=== PATIENT | female | born 1995 | race African-American/Black ===

== ENCOUNTER 2022-09-10 23:46 | Emergency (ER) | payer OTHER ==
--- NOTE | 2022-09-11 01:40 | CT ---
EXAM: CT Head Without Intravenous Contrast CLINICAL HISTORY: ITS.REASON CT Reason: fall TECHNIQUE: Axial computed tomography images of the head/brain without intravenous contrast. CTDI is 49.2 mGy and DLP is 1099.4 mGy-cm. This CT exam was performed using one or more of the following dose reduction techniques: automated exposure control, adjustment of the mA and/or kV according to patient size, and/or use of iterative reconstruction technique. COMPARISON: No relevant prior studies available. FINDINGS: Brain: Unremarkable. No hemorrhage. No significant white matter disease. No edema. Ventricles: Unremarkable. No ventriculomegaly. Bones/joints: Unremarkable. No acute fracture. Soft tissues: Unremarkable. Sinuses: Unremarkable as visualized. No acute sinusitis. Mastoid air cells: Unremarkable as visualized. No mastoid effusion. IMPRESSION: Normal head/brain CT.
[2022-09-11 01:53] LABS: African American GFR (CKD) >90 (>60 ml/min/1.73 sqM); Anion Gap 12 mmol/L; Blood Urea Nitrogen 6 mg/dL (7-17); Calcium 8.8 mg/dL (8.4-10.2); Carbon Dioxide 23 mmol/L (22-30); Chloride 106 mmol/L (98-107); Glucose 102 mg/dL (74-99); Non-African American GFR(CKD) 84 (>60 ml/min/1.73 sqM); Potassium 3.5 mmol/L (3.5-5.1); Sodium 141 mmol/L (137-145)
[2022-09-11] MEDS ORDERED: LORazepam 2 MG/ML INJ IV STA ×3 (02:02→08:55)
[2022-09-11] MEDS ORDERED: HALOPERIDOL LACTATE 5 MG/ML 1 ML VIAL IVP PRN (02:06)
--- NOTE | 2022-09-11 02:07 | ED ---
General Adult HPI - General Source: patient, RN notes reviewed Mode of arrival: ambulatory <Bere Mckeon - Last Filed: 09/12/22 00:12> <Neil Vaughn - Last Filed: 09/13/22 05:20> - General Chief complaint: Psychiatric Symptoms Stated complaint: ROBIN Riosition - Mental Health Time Seen by Provider: 09/11/22 00:23 - History of Present Illness Initial comments: 27-year-old -G[place]ian female with no significant past medical history presents to the emergency department via police escort with a chief complaint of hallucinations. Patient is reporting that she is hearing voices and seeing things. She reports that she saw her and in the back of the gas station. she reports she is hearing voices that are telling her to go upstairs. She denies any suicidal or homicidal ideation. She denies any illicit drug or alcohol use. Patient reports that she recently gave in [place]. Child lives with father. Patient reports that she is here for work. (Bere Mckeon) - Related Data Home Medications Medication Instructions Recorded Confirmed ARIPiprazole [Abilify] 15 mg PO DAILY 09/11/22 09/11/22 Allergies Allergy/AdvReac Type Severity Reaction Status Date / Time No Known Allergies Allergy Verified 09/11/22 09:42 Review of Systems ROS Other: All systems not noted in ROS Statement are negative. <Bere Mckeon - Last Filed: 09/12/22 00:12> ROS Other: All systems not noted in ROS Statement are negative. <Neil Vaughn - Last Filed: 09/13/22 05:20> ROS Statement: Those systems with pertinent positive or pertinent negative responses have been documented in the HPI. Past Medical History Past Medical History: No Reported History History of Any Multi-Drug Resistant Organisms: None Reported Past Surgical History: No Surgical Hx Reported Past Psychological History: No Psychological Hx Reported Smoking Status: Never smoker Past Alcohol Use History: Occasional Past Drug Use History: None Reported <Bere Mckeon - Last Filed: 09/12/22 00:12> General Exam Limitations: altered mental status General appearance: alert, anxious Head exam: Present: atraumatic, normocephalic Eye exam: Present: normal appearance, PERRL Pupils: Present: normal accommodation ENT exam: Present: normal exam, normal oropharynx Neck exam: Present: normal inspection Respiratory exam: Present: normal lung sounds bilaterally Cardiovascular Exam: Present: regular rate, normal rhythm GI/Abdominal exam: Present: soft. Absent: distended Extremities exam: Present: normal inspection, full ROM, normal capillary refill Back exam: Present: normal inspection Neurological exam: Present: altered (Active hallucinations), CN II-XII intact, normal gait Psychiatric exam: Present: normal affect, agitated, anxious, manic. Absent: homicidal ideation, suicidal ideation Skin exam: Present: warm, dry <Bere Mckeon - Last Filed: 09/12/22 00:12> Course <Bere Mckeon - Last Filed: 09/12/22 00:12> Vital Signs 09/10/22 09/11/22 09/11/22 23:50 04:00 05:00 Temperature 99.3 F Pulse Rate 83 73 78 Respiratory 18 14 16 Rate Blood Pressure 163/99 108/72 123/75 O2 Sat by Pulse 98 97 98 Oximetry 09/11/22 09/11/22 09/12/22 08:50 12:00 07:28 Temperature Pulse Rate Respiratory 18 16 16 Rate Blood Pressure O2 Sat by Pulse Oximetry 09/12/22 09/12/22 09/12/22 08:07 10:00 13:21 Temperature Pulse Rate 54 L Respiratory 16 16 16 Rate Blood Pressure 113/76 O2 Sat by Pulse 99 Oximetry - Reevaluation(s) Reevaluation #1: 09/11/22 02:03 Patient attempting to elope from the ER. She was activated. Patient able to be brought back to the ER bed 10. Patient screaming and stating she is hearing voices. 2Milligrams of Ativan ordered. (Bere Mckeno) Reevaluation #2: 09/11/22 02:07 EPS RN at bedside. EPS RN requesting 10 of Haldol to be ordered. (Bere Mckeon) Reevaluation #3: 09/11/22 02:41 With EPS nurse who is unable to evaluate the patient at this time. He reports that he will evaluate her in her few hours. (Bere Mckeon) Reevaluation #4: 09/11/22 04:00 case discussed with KARUNA Soria who assumes care of the patient while waiting for EPS evaluation. (Bere Mckeon) EKG Findings - EKG Comments: EKG Findings:: EKG reviewed and interpreted by myself, sinus rhythm, rate 73, IL interval 148, QRS duration 94, QTC 451 <Neil Vaughn - Last Filed: 09/13/22 05:20> Medical Decision Making - Lab Data Result diagrams: 09/11/22 00:48 09/11/22 00:48 <Bere Mckeon - Last Filed: 09/12/22 00:12> - Lab Data Result diagrams: 09/11/22 00:48 09/11/22 00:48 <Neil Vaughn - Last Filed: 09/13/22 05:20> - Medical Decision Making MDM: Hospital Course: Awaiting psychiatric evaluation. This is a 27-year-old -Gambian female who presents to the emergency department with hallucinations. Patient had a tho rough history and physical exam performed while in the ED. His exam is essentially unremarkable heart rate regular rate and rhythm, lungs clear to auscultation bilaterally, abdomen soft and nontender. Patient having auditory and visual hallucinations and attempted to elope from the emergency department she was given 2 mg of Ativan and 10 mg of Haldol recommendation of the EPS RN. Patient was resting comfortably at the time of sign out. I discussed the case with Dr. Vaughn who assumes care of the patient while awaiting EPS evaluation. (Bere Mckeon) Was pt. sent in by a medical professional or institution (, PA, WEB ADMINISTRATOR, urgent care, hospital, or long-term...) When possible be specific @ -[No] Did you speak to anyone other than the patient for history (EMS, parent, family, police, friend...)? What history was obtained from this source @ -[No] Did you review nursing and triage notes (agree or disagree)? Why? @ -[I reviewed and agree with nursing and triage notes] Were old charts reviewed (outside hosp., previous admission, EMS record, old EKG, old radiological studies, urgent care reports/EKG's, long-term records)? Report findings @ -[No old charts were reviewed] Differential Diagnosis (chest pain, altered mental status, abdominal pain women, abdominal pain men, vaginal bleeding, weakness, fever, dyspnea, syncope, headache, dizziness, GI bleed, back pain, seizure, CVA, palpatations, mental health, musculoskeletal)? @ Differential Mental Health Depression, anxiety, bipolar, psychosis, schizophrenia, borderline personality, situational depression, adjustment disorder, behavioral disorder, brain tumor, malingering, substance abuse, encephalopathy, medication reaction, dementia, hypothyroidism, degenerative neurologic disorder, lupus.... This is not meant to be all-inclusive list EKG interpreted by me (3pts min.). @ -EKG reviewed by myself, interpretation in EKG section X-rays interpreted by me (1pt min.). @ -[None done] CT interpreted by me (1pt min.). @ -[None done] U/S interpreted by me (1pt. min.). @ -[None done] What testing was considered but not performed or refused? (CT, X-rays, U/S, labs)? Why? @ -[None] What meds were considered but not given or refused? Why? @ -[None] Did you discuss the management of the patient with other professionals (professionals i.e. , PA, WEB ADMINISTRATOR, lab, RT, psych nurse, social media marketing analyst, can crimper, teacher, community chest officer, case work aide)? Give summary @ -[No] Was smoking cessation discussed for >3mins.? @ -[No] Was critical care preformed (if so, how long)? @ -[No] Were there social determinants of health that impacted care today? How? (H omelessness, low income, unemployed, alcoholism, drug addiction, transportation, low edu. Level, literacy, decrease access to med. care, residential, rehab)? @ -[No] Was there de-escalation of care discussed even if they declined (Discuss DNR or withdrawal of care, Hospice)? DNR status @ -[No] What co-morbidities impacted this encounter? (DM, HTN, Smoking, COPD, CAD, Cancer, CVA, ARF, Chemo, Hep., AIDS, mental health diagnosis, sleep apnea, morbid obesity)? @ -[None] Was patient admitted / discharged? Hospital course, mention meds given and route, prescriptions, significant lab abnormalities, going to OR and other pertinent info. @Patient required sedation for agitation and elopement precautions. She will be evaluated by EPS when awake and alert. Patient care signed out to oncoming physician awaiting reevaluation and EPS evaluation. (Neil Vaughn) - Lab Data Lab Results 09/11/22 09/11/22 09/11/22 Range/Units 00:48 00:48 00:48 WBC 5.1 (3.8-10.6) k/uL RBC 4.84 (3.80-5.40) m/uL Hgb 12.1 (11.4-16.0) gm/dL Hct 38.5 (34.0-46.0) % MCV 79.5 L (80.0-100.0) fL MCH 25.1 (25.0-35.0) pg MCHC 31.6 (31.0-37.0) g/dL RDW 16.3 H (11.5-15.5) % Plt Count 257 (150-450) k/uL MPV 9.2 Neutrophils % 49 % Lymphocytes % 40 % Monocytes % 8 % Eosinophils % 1 % Basophils % 0 % Neutrophils # 2.5 (1.3-7.7) k/uL Lymphocytes # 2.0 (1.0-4.8) k/uL Monocytes # 0.4 (0-1.0) k/uL Eosinophils # 0.0 (0-0.7) k/uL Basophils # 0.0 (0-0.2) k/uL Hypochromasia Slight Anisocytosis Slight Microcytosis Slight Sodium 141 (137-145) mmol/L Potassium 3.5 (3.5-5.1) mmol/L Chloride 106 (98-107) mmol/L Carbon Dioxide 23 (22-30) mmol/L Anion Gap 12 mmol/L BUN 6 L (7-17) mg/dL Creatinine 0.94 (0.52-1.04) mg/dL Est GFR (CKD-EPI)AfAm >90 (>60 ml/min/1.73 sqM) Est GFR (CKD-EPI)NonAf 84 (>60 ml/min/1.73 sqM) Glucose 102 H (74-99) mg/dL Calcium 8.8 (8.4-10.2) mg/dL Urine Opiates Screen Not Detected (NotDetected) Ur Oxycodone Screen Not Detected (NotDetected) Urine Methadone Screen Not Detected (NotDetected) Ur Propoxyphene Screen Not Detected (NotDetected) Ur Barbiturates Screen Not Detected (NotDetected) U Tricyclic Antidepress Detected H (NotDetected) Ur Phencyclidine Scrn Not Detected (NotDetected) Ur Amphetamines Screen Not Detected (NotDetected) U Methamphetamines Scrn Not Detected (NotDetected) U Benzodiazepines Scrn Not Detected (NotDetected) Urine Cocaine Screen Not Detected (NotDetected) U Marijuana (THC) Screen Detected H (NotDetected) Coronavirus (PCR) (Not Detectd) 09/11/22 Range/Units 01:30 WBC (3.8-10.6) k/uL RBC (3.80-5.40) m/uL Hgb (11.4-16.0) gm/dL Hct (34.0-46.0) % MCV (80.0-100.0) fL MCH (25.0-35.0) pg MCHC (31.0-37.0) g/dL RDW (11.5-15.5) % Plt Count (150-450) k/uL MPV Neutrophils % % Lymphocytes % % Monocytes % % Eosinophils % % Basophils % % Neutrophils # (1.3-7.7) k/uL Lymphocytes # (1.0-4.8) k/uL Monocytes # (0-1.0) k/uL Eosinophils # (0-0.7) k/uL Basophils # (0-0.2) k/uL Hypochromasia Anisocytosis Microcytosis Sodium (137-145) mmol/L Potassium (3.5-5.1) mmol/L Chloride (98-107) mmol/L Carbon Dioxide (22-30) mmol/L Anion Gap mmol/L BUN (7-17) mg/dL Creatinine (0.52-1.04) mg/dL Est GFR (CKD-EPI)AfAm (>60 ml/min/1.73 sqM) Est GFR (CKD-EPI)NonAf (>60 ml/min/1.73 sqM) Glucose (74-99) mg/dL Calcium (8.4-10.2) mg/dL Urine Opiates Screen (NotDetected) Ur Oxycodone Screen (NotDetected) Urine Methadone Screen (NotDetected) Ur Propoxyphene Screen (NotDetected) Ur Barbiturates Screen (NotDetected) U Tricyclic Antidepress (NotDetected) Ur Phencyclidine Scrn (NotDetected) Ur Amphetamines Screen (NotDetected) U Methamphetamines Scrn (NotDetected) U Benzodiazepines Scrn (NotDetected) Urine Cocaine Screen (NotDetected) U Marijuana (THC) Screen (NotDetected) Coronavirus (PCR) Not Detected (Not Detectd) Disposition <Bere Mckeon - Last Filed: 09/12/22 00:12> Is patient prescribed a controlled substance at d/c from ED?: No <Neil Vaughn - Last Filed: 09/13/22 05:20> Clinical Impression: Psychosis Disposition: ADMITTED IP TO THIS HOSP Condition: Stable Referrals: None,Stated [Primary Care Provider] - 1-2 days
[2022-09-11 02:46] LABS: Amphetamine Screen,Urine Not Detected (NotDetected); Cocaine Screen,Urine Not Detected (NotDetected); Opiate Screen,Urine Not Detected (NotDetected); Phencyclidine Screen,Urine Not Detected (NotDetected); Urn Cannabinoid Scrn Detected (NotDetected)
[2022-09-11 02:47] LABS: Barbiturate Screen,Urine Not Detected (NotDetected); Benzodiazepines Screen,Urine Not Detected (NotDetected); Methadone Screen, Urine Not Detected (NotDetected); Oxycodone Screen, Urine Not Detected (NotDetected); Tricyclic Antidepressant,Urine Detected (NotDetected)
[2022-09-11 02:59] LABS: Anisocytosis Slight; Basophils % (A) 0 %; Eosinophils % (A) 1 %; HCT 38.5 % (34.0-46.0); HGB 12.1 gm/dL (11.4-16.0); Hypochromasia Slight; Lymphocytes % (A) 40 %; MCH 25.1 pg (25.0-35.0); MCHC 31.6 g/dL (31.0-37.0); MCV 79.5 fL (80.0-100.0); Mean Platelet Volume 9.2; Microcytosis Slight; Monocytes # (A) 0.4 k/uL (0-1.0); Monocytes % (A) 8 %; Neutrophils # (A) 2.5 k/uL (1.3-7.7); Neutrophils % (A) 49 %; Platelet Count 257 k/uL (150-450); RBC 4.84 m/uL (3.80-5.40); RDW 16.3 % (11.5-15.5); WBC 5.1 k/uL (3.8-10.6)
[2022-09-11] MEDS ORDERED: NICOTINE GUM (POLACRILEX) 2 MG GUM BUCCAL STA (09:41)
[2022-09-12] MEDS ORDERED: NICOTINE GUM (POLACRILEX) 2 MG GUM BUCCAL ONE (04:03)
[2022-09-12] MEDS: NICOTINE GUM (POLACRILEX) 2 MG GUM BUCCAL PRN ×3 (12:16→23:56)
[2022-09-12] MEDS ORDERED: MELATONIN 5 MG TABLET PO SCH (23:45)
[2022-09-13] MEDS: NICOTINE GUM (POLACRILEX) 2 MG GUM BUCCAL PRN ×2 (06:18→10:11)
--- NOTE | 2022-09-13 10:20 | P.CN ---
Psychiatric Consult - . Consult date: 09/13/22 Consult:: 09/13/22 10:19 IDENTIFYING DATA: This patient is a 27-year-old single, employed, and [place]ian female with significant history of psychosis and depression who presents to our hospital for psychosis. HISTORY OF PRESENT ILLNESS: The patient presented to the hospital on 09/11/2022, presenting to the hospital by police for auditory hallucinations and visual hallucinations. The patient is originally from [place], [place] and was subsequently brought to our hospital for psychiatric evaluation. She was petitioned and certified. Psychiatry has been consulted to assess the patient for psychosis and to determine clinical certification status. Upon evaluation in the ED, the patient is currently alert and oriented to person, place, and time. She is unable to recall events leading up to this hospitalization. She does not recall driving to [employer] from [place]. She reports that the last thing she remembers is being at a gas station parking lot and being brought in by police. Currently, the patient is not endorsing any suicidal or homicidal ideation, intention, and/or plan. She reports symptoms of depression including low mood, decreased energy, and low motivation. She states that she has had depression for some time even prior to the of her son "Bertin" this past May. She does not provide any clear history of aiden. She denies any periods of excessive energy, grandiosity, or increased goal-directed activity. The patient does endorse significant symptoms of psychosis. She reports that since giving to her son, she has been experiencing auditory and visual hallucinations. She does admit to command-type hallucinations telling her to harm herself. She reports the voices are also demeaning and say mean things. She reports visual hallucinations as "I see multiple bodies on the floor and b andages." She does report generalized paranoia but is not reporting any other delusions. She denies any ideas of reference, thought insertion, thought deletion, cotard delusion, or religiously themed delusions. The patient is agreeable to continue her psychiatric assessment and treatment in [place]. She acknowledges a plan with this provider that her mother will pick her up from the emergency department and bring her into [place] for further evaluation. PAST PSYCHIATRIC HISTORY: Patient has a history of depression and psychosis. Patient recalls being previously prescribed Effexor in the past. Her home medication also includes Abilify. She does report one previous inpatient psychiatric admission in [place] that occurred between May and . Patient denies any psychiatric outpatient follow-up. Patient denies any history of suicide attempts in the past. PAST MEDICAL HISTORY: Past Medical History: No Reported History History of Any Multi-Drug Resistant Organisms: None Reported Past Surgical History: No Surgical Hx Reported Past Psychological History: No Psychological Hx Reported Smoking Status: Never smoker Past Alcohol Use History: Occasional Past Drug Use History: None Reported ALLERGIES: NO KNOWN DRUG ALLERGIES CHEMICAL DEPENDENCY HISTORY: The patient reports that she uses vape. She reports daily marijuana use. She reports 4-5 alcoholic beverages in one sitting on occasion.She denies any illicit drug use. FAMILY PSYCHIATRIC/SUBSTANCE USE HISTORY: The patient reports that her father had PTSD. SOCIAL HISTORY: Patient was born and raised in [place]. She is single, never , and has a son who was born this past May. She reports that the relationship with her son's father is cordial. She currently lives alone. She does report that she has good family support. She attended some college. She currently works for a [employer]. Her hobbies and interests include painting. Her favorite artist is [employer]. MENTAL STATUS EXAM: General Appearance: Patient appears to be stated age is alert, pleasant, and cooperative. Patient appears to have fair hygiene and grooming wearing hospital gown with fair eye contact. Behavior: Patient is calmly seated upright in bed without any agitated behavior. Eye contact is appropriate. Speech: Patient's speech is fluent and nonpressured. Nonspontaneous and monotone. Mood/Affect: Patient reports their mood is "feeling okay", affect is blunted. Suicidality/Homicidality: Patient reports no suicidal or homicidal ideation, intention, and/or plan. Perceptions: Patient reports auditory and visual hallucinations. Though content/process: There is no evidence of any delusional thought content and thought process is linear and goal-directed. Memory and concentration: AOX3, grossly intact for the purposes of this session. Can spell "WORLD" backwards Judgment and insight: Improving Vital Signs Temp 99.3 F 09/10/22 23:50 Pulse 62 09/13/22 06:15 Resp 16 09/13/22 06:15 BP 117/68 09/13/22 06:15 Pulse Ox 98 09/13/22 06:15 FiO2 Laboratory Results WBC 5.1 k/uL (3.8-10.6) 09/11/22 00:48 RBC 4.84 m/uL (3.80-5.40) 09/11/22 00:48 Hgb 12.1 gm/dL (11.4-16.0) 09/11/22 00:48 Hct 38.5 % (34.0-46.0) 09/11/22 00:48 MCV 79.5 fL (80.0-100.0) L 09/11/22 00:48 MCH 25.1 pg (25.0-35.0) 09/11/22 00:48 MCHC 31.6 g/dL (31.0-37.0) 09/11/22 00:48 RDW 16.3 % (11.5-15.5) H 09/11/22 00:48 Plt Count 257 k/uL (150-450) 09/11/22 00:48 MPV 9.2 09/11/22 00:48 Neutrophils % 49 % 09/11/22 00:48 Lymphocytes % 40 % 09/11/22 00:48 Monocytes % 8 % 09/11/22 00:48 Eosinophils % 1 % 09/11/22 00:48 Basophils % 0 % 09/11/22 00:48 Neutrophils # 2.5 k/uL (1.3-7.7) 09/11/22 00:48 Lymphocytes # 2.0 k/uL (1.0-4.8) 09/11/22 00:48 Monocytes # 0.4 k/uL (0-1.0) 09/11/22 00:48 Eosinophils # 0.0 k/uL (0-0.7) 09/11/22 00:48 Basophils # 0.0 k/uL (0-0.2) 09/11/22 00:48 Hypochromasia Slight 09/11/22 00:48 Anisocytosis Slight 09/11/22 00:48 Microcytosis Slight 09/11/22 00:48 Sodium 141 mmol/L (137-145) 09/11/22 00:48 Potassium 3.5 mmol/L (3.5-5.1) 09/11/22 00:48 Chloride 106 mmol/L (98-107) 09/11/22 00:48 Carbon Dioxide 23 mmol/L (22-30) 05/23/23 00:48 Anion Gap 12 mmol/L 09/11/22 00:48 BUN 6 mg/dL (7-17) L 09/11/22 00:48 Creatinine 0.94 mg/dL (0.52-1.04) 09/11/22 00:48 Est GFR (CKD-EPI)AfAm >90 (>60 ml/min/1.73 sqM) 09/11/22 00:48 Est GFR (CKD-EPI)NonAf 84 (>60 ml/min/1.73 sqM) 09/11/22 00:48 Glucose 102 mg/dL (74-99) H 09/11/22 00:48 Calcium 8.8 mg/dL (8.4-10.2) 09/11/22 00:48 Urine Opiates Screen Not Detected (NotDetected) 09/11/22 00:48 Ur Oxycodone Screen Not Detected (NotDetected) 09/11/22 00:48 Urine Methadone Screen Not Detected (NotDetected) 09/11/22 00:48 Ur Propoxyphene Screen Not Detected (NotDetected) 09/11/22 00:48 Ur Barbiturates Screen Not Detected (NotDetected) 09/11/22 00:48 U Tricyclic Antidepress Detected (NotDetected) H 09/11/22 00:48 Ur Phencyclidine Scrn Not Detected (NotDetected) 09/11/22 00:48 Ur Amphetamines Screen Not Detected (NotDetected) 09/11/22 00:48 U Methamphetamines Scrn Not Detected (NotDetected) 09/11/22 00:48 U Benzodiazepines Scrn Not Detected (NotDetected) 09/11/22 00:48 Urine Cocaine Screen Not Detected (NotDetected) 09/11/22 00:48 U Marijuana (THC) Screen Detected (NotDetected) H 09/11/22 00:48 Coronavirus (PCR) Not Detected (Not Detectd) 09/11/22 01:30 IMPRESSIONS: Acute psychotic episode - rule out psychosis Dissociative fugue Nicotine dependence Cannabis abuse PLAN: -At this time, a negative clinical certificate will be filled out as the patient is not endorsing any imminent risk of harm to self or others. The patient's mother is coming to picker packer the patient from the ED to bring back to [place] for clinical assessment and treatment. The patient appears to be grounded in reality and is expressing understanding and agreement with this plan. -Would recommend the following medication changes/additions: Recommend patient leave with 2 tabs of zyprexa zydis 5mg ODT PRN for psychosis/agitation for the trip back to [place]. -Psychiatry will sign off at this point, please contact with any questions. 09/13/22 10:19
[2022-09-13 12:30] VITALS: BP 135/91; PULSE 91; RESP 17; TEMP 98.6
== END 2022-09-13 12:30 | disposition other institution (70) ==
LOC: EC 23:46
DX: F29 Unspecified psychosis not due to a substance or known physiological condition (principal); Z20.822 Contact with and (suspected) exposure to COVID-19
CPT/HCPCS: 82075; 36415; 93005; 80048; 85025; 80306; 87635; 70450; 99285; 96374; 96375; 96376 ×2; J2060; J1630